=== PATIENT | male | born 2000 | race Caucasian/White ===

== ENCOUNTER 2020-04-24 19:35 | Emergency (ER) | payer MEDICAID ==
[~2020-04-24] VITALS: Ht 182.9 cm; Wt 100.0 kg
[2020-04-24 19:39] VITALS: BP 146/89
== END 2020-04-24 20:50 | disposition home or self-care (01) ==
LOC: ER 19:37
DX: S80.212A Abrasion, left knee, initial encounter (principal); S80.211A Abrasion, right knee, initial encounter; S40.812A Abrasion of left upper arm, initial encounter; M25.562 Pain in left knee; X58.XXXA Exposure to other specified factors, initial encounter; Y93.89 Activity, other specified; Y92.89 Other specified places as the place of occurrence of the external cause; Y99.8 Other external cause status
CPT/HCPCS: 29505; 72170; 73564; 99284